=== PATIENT | male | born 1970 | race African-American/Black ===

== ENCOUNTER 2024-08-23 08:08 | Emergency (ER) | payer OTHER ==
[~2024-08-23] VITALS: Ht 175.3 cm; Wt 136.3 kg
[2024-08-23 08:51] VITALS: BP 138/74; PULSE 88; RESP 16; TEMP 98.1; O2SAT 96
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
[2024-08-23] MEDS ORDERED: METH-1182 PO (09:58)
[2024-08-23] MEDS ORDERED: ACET-1304 PO (09:58)
== END 2024-08-23 10:01 | disposition home or self-care (01) ==
LOC: ER 08:08
DX: S16.1XXA Strain of muscle, fascia and tendon at neck level, initial encounter (principal); S39.012A Strain of muscle, fascia and tendon of lower back, initial encounter; I12.9 Hypertensive chronic kidney disease with stage 1 through stage 4 chronic kidney disease, or unspecified chronic kidney disease; E11.22 Type 2 diabetes mellitus with diabetic chronic kidney disease; N18.9 Chronic kidney disease, unspecified; Z88.5 Allergy status to narcotic agent; V89.2XXA Person injured in unspecified motor-vehicle accident, traffic, initial encounter; Y93.I9 Activity, other involving external motion; Y92.488 Other paved roadways as the place of occurrence of the external cause; Y99.8 Other external cause status
CPT/HCPCS: 72040; 72100